=== PATIENT | male | born 1950 | race Caucasian/White ===

== ENCOUNTER 2018-06-07 10:27 | Emergency (ER) | payer MEDICARE, BC ==
[2018-06-07] MEDS: MECLIZINE 12.5 MG TAB PO (11:39)
== END 2018-06-07 12:44 | disposition home or self-care (01) ==
LOC: E/R 10:27
DX: H81.399 Other peripheral vertigo, unspecified ear (principal); I10 Essential (primary) hypertension; F17.210 Nicotine dependence, cigarettes, uncomplicated
CPT/HCPCS: 70450; 93005; 99284-25